=== PATIENT | male | born 1940 | race Caucasian/White ===

== ENCOUNTER → 2016-12-06 | Outpatient (CLI) | payer MEDICARE, BC ==
[2016-12-06 12:27] LABS: ALANINE AMINOTRANSFERASE 30 U/L (21-72); ALKALINE PHOSPHATASE 82 U/L (38-126); ANION GAP 9 (5-19); ASPARTATE AMINO TRANSFERASE 19 U/L (17-59); BILIRUBIN,DIRECT 0.2 mg/dL (0.0-0.4); BILIRUBIN,TOTAL 0.5 mg/dL (0.2-1.3); BLOOD UREA NITROGEN 24 mg/dL (7-20); CALCIUM 9.7 mg/dL (8.4-10.2); CARBON DIOXIDE 30 mmol/L (22-30); CHLORIDE 100 mmol/L (98-107); CHOLESTEROL 133.54 mg/dL (0-200); CREATININE RESULT 0.99 mg/dL (0.52-1.25); Direct HDL 47 mg/dL (>40); GLUCOSE 235 mg/dL (75-110); POTASSIUM 4.8 mmol/L (3.6-5.0); SODIUM 139.3 mmol/L (137-145); TOTAL PROTEIN 6.9 g/dL (6.3-8.2); TRIGLYCERIDES 141 mg/dL (<150)
[2016-12-06 12:39] LABS: DIRECT LDL 55 mg/dL (<100)
== END ==
LOC: LAB 11:50
PROVIDERS: ATTEND Internal Medicine
DX: I25.118 Atherosclerotic heart disease of native coronary artery with other forms of angina pectoris (principal); Z98.61 Coronary angioplasty status; E11.9 Type 2 diabetes mellitus without complications; E78.4 Other hyperlipidemia; I10 Essential (primary) hypertension; I73.9 Peripheral vascular disease, unspecified; N40.0 Benign prostatic hyperplasia without lower urinary tract symptoms; Z79.899 Other long term (current) drug therapy; I34.0 Nonrheumatic mitral (valve) insufficiency
CPT/HCPCS: 36415; 80053; 80061; 83036

== ENCOUNTER → 2017-06-08 | Outpatient (CLI) | payer MEDICARE, BC ==
[2017-06-08 11:18] LABS: ALANINE AMINOTRANSFERASE 41 U/L (21-72); ALBUMIN 4.5 g/dL (3.5-5.0); ALKALINE PHOSPHATASE 72 U/L (38-126); ANION GAP 11 (5-19); ASPARTATE AMINO TRANSFERASE 24 U/L (17-59); BILIRUBIN,DIRECT 0.4 mg/dL (0.0-0.4); BILIRUBIN,TOTAL 0.7 mg/dL (0.2-1.3); BLOOD UREA NITROGEN 24 mg/dL (7-20); CALCIUM 9.8 mg/dL (8.4-10.2); CARBON DIOXIDE 30 mmol/L (22-30); CHLORIDE 102 mmol/L (98-107); CHOLESTEROL 148.52 mg/dL (0-200); Direct HDL 59 mg/dL (>40); GLUCOSE 143 mg/dL (75-110); POTASSIUM 4.9 mmol/L (3.6-5.0); SODIUM 143.3 mmol/L (137-145); TOTAL PROTEIN 7.4 g/dL (6.3-8.2); TRIGLYCERIDES 84 mg/dL (<150)
[2017-06-08 11:29] LABS: DIRECT LDL 72 mg/dL (<100)
== END ==
LOC: LAB 10:42
PROVIDERS: ATTEND Internal Medicine
DX: I25.118 Atherosclerotic heart disease of native coronary artery with other forms of angina pectoris (principal); Z98.61 Coronary angioplasty status; E78.4 Other hyperlipidemia; I10 Essential (primary) hypertension; E11.9 Type 2 diabetes mellitus without complications; I34.0 Nonrheumatic mitral (valve) insufficiency; I73.9 Peripheral vascular disease, unspecified; N40.0 Benign prostatic hyperplasia without lower urinary tract symptoms; Z79.899 Other long term (current) drug therapy
CPT/HCPCS: 36415; 80053; 80061; 83036

== ENCOUNTER → 2018-01-24 | Outpatient (CLI) | payer MEDICARE, BC ==
[2018-01-24 10:52] LABS: ALANINE AMINOTRANSFERASE 27 U/L (21-72); ALBUMIN 4.3 g/dL (3.5-5.0); ALKALINE PHOSPHATASE 75 U/L (38-126); ANION GAP 11 (5-19); ASPARTATE AMINO TRANSFERASE 23 U/L (17-59); BILIRUBIN,DIRECT 0.2 mg/dL (0.0-0.4); BILIRUBIN,TOTAL 0.6 mg/dL (0.2-1.3); BLOOD UREA NITROGEN 18 mg/dL (7-20); CALCIUM 9.4 mg/dL (8.4-10.2); CARBON DIOXIDE 27 mmol/L (22-30); CHLORIDE 104 mmol/L (98-107); CHOLESTEROL 142.36 mg/dL (0-200); GLUCOSE 131 mg/dL (75-110); POTASSIUM 4.5 mmol/L (3.6-5.0); SODIUM 142.2 mmol/L (137-145); TOTAL PROTEIN 7.3 g/dL (6.3-8.2); TRIGLYCERIDES 87 mg/dL (<150)
[2018-01-24 11:03] LABS: DIRECT LDL 67 mg/dL (<100)
== END ==
LOC: LAB 10:01
PROVIDERS: ATTEND Internal Medicine
DX: I25.118 Atherosclerotic heart disease of native coronary artery with other forms of angina pectoris (principal); Z98.61 Coronary angioplasty status; E78.4 Other hyperlipidemia; I10 Essential (primary) hypertension; I73.9 Peripheral vascular disease, unspecified; N40.0 Benign prostatic hyperplasia without lower urinary tract symptoms; E11.9 Type 2 diabetes mellitus without complications; I34.0 Nonrheumatic mitral (valve) insufficiency; Z79.899 Other long term (current) drug therapy
CPT/HCPCS: 36415; 80053; 80061

== ENCOUNTER → 2018-07-10 | Outpatient (CLI) | payer MEDICARE, BC ==
[2018-07-10 16:22] LABS: ALANINE AMINOTRANSFERASE 19 U/L (21-72); ALBUMIN 4.4 g/dL (3.5-5.0); ALKALINE PHOSPHATASE 79 U/L (38-126); ANION GAP 10 (5-19); ASPARTATE AMINO TRANSFERASE 21 U/L (17-59); BILIRUBIN,DIRECT 0.2 mg/dL (0.0-0.4); BILIRUBIN,TOTAL 0.6 mg/dL (0.2-1.3); BLOOD UREA NITROGEN 18 mg/dL (7-20); CALCIUM 9.7 mg/dL (8.4-10.2); CARBON DIOXIDE 28 mmol/L (22-30); CHLORIDE 102 mmol/L (98-107); CHOLESTEROL 133.32 mg/dL (0-200); GLUCOSE 155 mg/dL (75-110); POTASSIUM 4.6 mmol/L (3.6-5.0); SODIUM 139.5 mmol/L (137-145); TOTAL PROTEIN 6.8 g/dL (6.3-8.2); TRIGLYCERIDES 102 mg/dL (<150)
[2018-07-10 16:39] LABS: DIRECT LDL 66 mg/dL (<100)
== END ==
LOC: LAB 14:56
PROVIDERS: ATTEND Internal Medicine
DX: I25.118 Atherosclerotic heart disease of native coronary artery with other forms of angina pectoris (principal); Z98.61 Coronary angioplasty status; I10 Essential (primary) hypertension; I73.9 Peripheral vascular disease, unspecified; N40.0 Benign prostatic hyperplasia without lower urinary tract symptoms; E11.9 Type 2 diabetes mellitus without complications; I34.0 Nonrheumatic mitral (valve) insufficiency; Z79.899 Other long term (current) drug therapy
CPT/HCPCS: 36415; 80053; 80061; 83036

== ENCOUNTER → 2018-11-20 | Outpatient (CLI) | payer MEDICARE, BC ==
[2018-11-20 13:03] LABS: ALANINE AMINOTRANSFERASE 23 U/L (21-72); ALKALINE PHOSPHATASE 73 U/L (38-126); ASPARTATE AMINO TRANSFERASE 18 U/L (17-59); BILIRUBIN,DIRECT 0.4 mg/dL (0.0-0.4); BILIRUBIN,TOTAL 0.7 mg/dL (0.2-1.3); CHOLESTEROL 130.98 mg/dL (0-200); TOTAL PROTEIN 6.4 g/dL (6.3-8.2); TRIGLYCERIDES 70 mg/dL (<150)
[2018-11-20 13:20] LABS: DIRECT LDL 71 mg/dL (<100)
== END ==
LOC: LAB 11:51
PROVIDERS: ATTEND Specialist
DX: I25.10 Atherosclerotic heart disease of native coronary artery without angina pectoris (principal); Z98.61 Coronary angioplasty status; E78.49 Other hyperlipidemia; I10 Essential (primary) hypertension; I73.9 Peripheral vascular disease, unspecified; N40.0 Benign prostatic hyperplasia without lower urinary tract symptoms; I34.0 Nonrheumatic mitral (valve) insufficiency; Z79.899 Other long term (current) drug therapy
CPT/HCPCS: 36415; 80061; 80076; 83036

== ENCOUNTER 2019-05-18 12:14 | Emergency (ER) | payer MEDICARE, BC ==
--- NOTE | 2019-05-18 12:37 | ER Document Report ---
ED Medical Screen (RME) - General Chief Complaint: Abdominal Pain Stated Complaint: ABDOMINAL PAIN Time Seen by Provider: 05/18/19 12:24 Primary Care Provider: DUNIA OWEN MD [Primary Care Provider] - Follow up as needed Notes: 78-year-old male with coronary artery disease status post stent x2, remote history of double hernia repair status post mesh placement, and diabetes presents the emergency department with abdominal pain for the past month got acutely worse last couple of days. Patient states is been to 3 different doctors who "have not helped me". Denies fevers or chills, denies nausea or vomiting Exam: Well-appearing and nontoxic. Lungs are clear in all kang, abdominal exam limited by patient does have diffuse tenderness palpation while sitting down I have greeted and performed a rapid initial assessment of this patient. A comprehensive ED assessment and evaluation of the patient, analysis of test results and completion of medical decision making process will be conducted by an additional ED providers. TRAVEL OUTSIDE OF THE [place] IN LAST 30 DAYS: No - Related Data Allergies/Adverse Reactions: No Known Allergies Allergy (Unverified 05/18/19 12:23) Physical Exam - Vital signs Vitals: Temp Pulse Resp BP 97.6 F 123 H 16 152/65 H 05/18/19 12:15 05/18/19 12:15 05/18/19 12:15 05/18/19 12:15 Course - Vital Signs Vital signs: Temp Pulse Resp BP Pulse Ox 97.6 F 123 H 16 152/65 H 05/18/19 12:15 05/18/19 12:15 05/18/19 12:15 05/18/19 12:15 Doctor's Discharge - Discharge Referrals: DUNIA OWEN MD [Primary Care Provider] - Follow up as needed
[2019-05-18 13:19] LABS: APPEARANCE,URINE SLIGHTLY-CLOUDY; BILIRUBIN,URINE NEGATIVE (NEGATIVE); COLOR,URINE YELLOW; GLUCOSE, URINE >=500 mg/dL (NEGATIVE); KETONES,URINE NEGATIVE (NEGATIVE); LEUKOCYTE ESTERASE,URINE TRACE (NEGATIVE); NITRITE,URINE NEGATIVE (NEGATIVE); PROTEIN,URINE NEGATIVE (NEGATIVE); URINE SPECIFIC GRAVITY 1.013; UROBILINOGEN,URINE NEGATIVE mg/dL (<2.0)
[2019-05-18 14:25] LABS: ABSOLUTE EOSINOPHILS # (AUTO) 0.1 10^3/uL (0.0-0.6); ABSOLUTE LYMPHOCYTES (AUTO) 0.9 10^3/uL (0.5-4.7); ABSOLUTE MONOCYTES (AUTO) 1.1 10^3/uL (0.1-1.4); ABSOLUTE NEUT (AUTO) 9.3 10^3/uL (1.7-8.2); BASOPHILS % (AUTO) 0.4 % (0-2); EOSINOPHILS % (AUTO) 0.7 % (0-6); HEMATOCRIT 41.9 % (37.9-51.0); LYMPHOCYTES % (AUTO) 7.8 % (13-45); MEAN CORPUSCULAR HEMOGLOBIN 30.1 pg (27.0-33.4); MEAN CORPUSCULAR HGB CONC 33.4 g/dL (32.0-36.0); MEAN CORPUSCULAR VOLUME 90 fl (80-97); MONOCYTES % (AUTO) 9.3 % (3-13); PLATELET COUNT 209 10^3/uL (150-450); RED BLOOD COUNT 4.64 10^6/uL (4.35-5.55); RED CELL DISTRIBUTION WIDTH 14.2 % (11.5-14.0); SEGMENTED NEUTROPHILS % (AUTO) 81.8 % (42-78); TOTAL CELLS COUNTED % (AUTO) 100 %; WHITE BLOOD COUNT 11.4 10^3/uL (4.0-10.5)
[2019-05-18 14:41] LABS: ALBUMIN 4.1 g/dL (3.5-5.0); ALKALINE PHOSPHATASE 89 U/L (38-126); ANION GAP 12 (5-19); ASPARTATE AMINO TRANSFERASE 30 U/L (17-59); BILIRUBIN,DIRECT 0.3 mg/dL (0.0-0.4); BILIRUBIN,TOTAL 0.7 mg/dL (0.2-1.3); BLOOD UREA NITROGEN 57 mg/dL (7-20); CALCIUM 9.8 mg/dL (8.4-10.2); CARBON DIOXIDE 25 mmol/L (22-30); CHLORIDE 106 mmol/L (98-107); GLUCOSE 185 mg/dL (75-110); POTASSIUM 5.5 mmol/L (3.6-5.0); TOTAL PROTEIN 8.1 g/dL (6.3-8.2)
[2019-05-18] MEDS ORDERED: MORPHINE SULFATE 10 MG/ML INJ IV ONE ×2 (15:34→18:13)
[2019-05-18] MEDS ORDERED: NORMAL SALINE 1000 ML 1,000 ML IV ONE (15:34)
--- NOTE | 2019-05-18 15:43 | ER Document Report ---
ED GI/ - General Chief Complaint: Urinary Problem Stated Complaint: ABDOMINAL PAIN Time Seen by Provider: 05/18/19 12:24 Primary Care Provider: ADRIANA BUENROSTRO MD [NO LOCAL MD] - Follow up as needed Mode of Arrival: Ambulatory Information source: Patient Notes: 78-year-old male with coronary artery disease status post stent x2, remote history of double hernia repair status post mesh placement, and diabetes presents the emergency department with abdominal pain for the past month got acutely worse last couple of days. Patient states is been to 3 different docto rs who "have not helped me". Denies fevers or chills, denies nausea or vomiting He states that his PCP has started him on flomax, doxycycline and cipro without relief of his pain. States his PCP did not look at his recatl area of assess his scrotum. States he had a "normal" urine test at the PCP. Denies hx of BPH. TRAVEL OUTSIDE OF THE [place] IN LAST 30 DAYS: No - Related Data Allergies/Adverse Reactions: No Known Allergies Allergy (Unverified 05/18/19 12:23) Past Medical History - General Information source: Patient - Social History Smoking Status: Former Smoker Chew tobacco use (# tins/day): Yes Frequency of alcohol use: Occasional Drug Abuse: None Family History: Reviewed & Not Pertinent Patient has suicidal ideation: No Patient has homicidal ideation: No Endocrine Medical History: Reports: Hx Diabetes Mellitus Type 2 Past Surgical History: Reports: Hx Abdominal Surgery - Immunizations Immunizations up to date: Yes Review of Systems - Review of Systems Constitutional: No symptoms reported EENT: No symptoms reported Cardiovascular: No symptoms reported Respiratory: No symptoms reported Gastrointestinal: Abdominal pain Genitourinary: Incontinence, Urgency, Retention Male Genitourinary: No symptoms reported Musculoskeletal: No symptoms reported Skin: No symptoms reported Hematologic/Lymphatic: No symptoms reported Neurological/Psychological: No symptoms reported Physical Exam - Vital signs Vitals: Temp Pulse Resp BP 97.6 F 123 H 16 152/65 H 05/18/19 12:15 05/18/19 12:15 05/18/19 12:15 05/18/19 12:15 - Notes Notes: PHYSICAL EXAMINATION: GENERAL: Appears to be stated age, no acute distress, well groomed. HEAD: Atraumatic, normocephalic. EYES: Pupils equal round and reactive to light, extraocular movements intact, sclera anicteric, conjunctiva are normal. ENT: Nares patent, oropharynx clear without exudates. Moist mucous membranes. NECK: Normal range of motion, supple without lymphadenopathy LUNGS: Breath sounds clear to auscultation bilaterally and equal. No wheezes rales or rhonchi. HEART: Regular rate and rhythm without murmurs ABDOMEN: Soft, mildy distended abdomen. No guarding, no rebound. No masses appreciated. Genitourinary: Enlarged prostate on rectal exam, large external hemorroids noted. Musculoskeletal: Normal range of motion, no pitting or edema. No cyanosis. NEUROLOGICAL: Cranial nerves grossly intact. Normal speech, normal gait. Normal sensory, motor exams PSYCH: Normal mood, normal affect. SKIN: Warm, Dry, normal turgor, no rashes or lesions noted. Course - Re-evaluation Re-evalutation: 05/18/19 15:42 Discussed case with both attending physician, Dr. Valero as well as radiologist, Dr. Mosley. Patient does need a CT however we will have to proceed with CT with oral contrast only due to new onset renal failure. Laboratory 05/18/19 05/18/19 05/18/19 13:00 14:07 14:07 WBC 11.4 H RBC 4.64 Hgb 14.0 Hct 41.9 MCV 90 MCH 30.1 MCHC 33.4 RDW 14.2 H Plt Count 209 Lymph % (Auto) 7.8 L Norman % (Auto) 9.3 Eos % (Auto) 0.7 Baso % (Auto) 0.4 Absolute Neuts (auto) 9.3 H Absolute Lymphs (auto) 0.9 Absolute Monos (auto) 1.1 Absolute Eos (auto) 0.1 Absolute Basos (auto) 0.0 Seg Neutrophils % 81.8 H Sodium 142.9 Potassium 5.5 H Chloride 106 Carbon Dioxide 25 Anion Gap 12 BUN 57 H Creatinine 2.26 H Est GFR ( Amer) 34 L Est GFR (MDRD) Non-Af 28 L Glucose 185 H Calcium 9.8 Total Bilirubin 0.7 Direct Bilirubin 0.3 Neonat Total Bilirubin Not Reportable Neonat Direct Bilirubin Not Reportable Neonat Indirect Bili Not Reportable AST 30 ALT 34 Alkaline Phosphatase 89 Total Protein 8.1 Albumin 4.1 Lipase 12.4 L Urine Color YELLOW Urine Appearance SLIGHTLY-CLOUDY Urine pH 5.0 Ur Specific [place] 1.013 Urine Protein NEGATIVE Urine Glucose (UA) >=500 H Urine Ketones NEGATIVE Urine Blood LARGE H Urine Nitrite NEGATIVE Urine Bilirubin NEGATIVE Urine Urobilinogen NEGATIVE Ur Leukocyte Esterase TRACE H Urine WBC (Auto) 38 Urine RBC (Auto) 152 Squamous Epi Cells Auto <1 Urine Mucus (Auto) RARE Urine Ascorbic Acid NEGATIVE CT of the abdomen and pelvis shows acute urinary retention. Thayer catheter inserted, 2000 mL's of clear yellow urine obtained. Patient reports he feels much improved. Called and spoke with on-call urologist at [facility], he agr ees to see patient in clinic, see d/c notes for further details on this. - Vital Signs Vital signs: Temp Pulse Resp BP Pulse Ox 97.5 F 72 14 155/64 H 97 05/18/19 21:50 05/18/19 21:50 05/18/19 21:50 05/18/19 21:50 05/18/19 21:50 - Laboratory Result Diagrams: 05/18/19 14:07 05/18/19 14:07 Laboratory results interpreted by me: 05/18/19 05/18/19 05/18/19 13:00 14:07 14:07 WBC 11.4 H RDW 14.2 H Lymph % (Auto) 7.8 L Absolute Neuts (auto) 9.3 H Seg Neutrophils % 81.8 H Potassium 5.5 H BUN 57 H Creatinine 2.26 H Est GFR ( Amer) 34 L Est GFR (MDRD) Non-Af 28 L Glucose 185 H Lipase 12.4 L Urine Glucose (UA) >=500 H Urine Blood LARGE H Ur Leukocyte Esterase TRACE H Discharge - Discharge Clinical Impression: Acute urinary retention, Acute hemorrhoid Condition: Stable Disposition: HOME, SELF-CARE Additional Instructions: Your exam today showed elevated creatinine levels and acute urinary retention secondary to an enlarged prostate. The urinary retention is likely what caused the elevated creatinine levels and for your kidney function to be altered. It is very important for you to follow-up with urology. I have called and spoke with Dr. Buenrostro at [facility] urology, he would like you to call his office Monday so that they can work you into their schedule. Please let them know you were seen in the emergency department and the emergency department provider spoke with Dr. Buenrostro. Keep the Thayer catheter in place until seen by urology. Prescriptions: Hydrocodone Bit/Acetaminophen [Hydrocodon-Acetaminophen 5-325] 1 each PO Q4H PRN #15 tablet PRN Reason: Referrals: ADRIANA BUENROSTRO MD [NO LOCAL MD] - Follow up as needed
--- NOTE | 2019-05-18 16:50 | RADIOLOGY REPORT (SQ) ---
EXAM DESCRIPTION: CT ABD/PELVIS ORAL ONLY COMPLETED DATE/TIME: 05/18/2019 4:20 pm REASON FOR STUDY: Abdominal pain COMPARISON: None. TECHNIQUE: CT scan of the abdomen and pelvis performed with oral contrast and no intravenous contras t. Images reviewed with lung, soft tissue, and bone windows. Reconstructed coronal and sagittal MPR i mages reviewed. All images stored on PACS. All CT scanners at this facility use dose modulation, iterative reconstruction, and/or weight based d osing when appropriate to reduce radiation dose to as low as reasonably achievable (ALARA). [facility]: Dose Right [facility]: CareDose [facility]: Dose Right [facility]: Teradose 4D [facility]: [employer] RADIATION DOSE: CT Rad equipment meets quality standard of care and radiation dose reduction techniq ues were employed. CTDIvol: 4.9 mGy. DLP: 244 mGy-cm.mGy. LIMITATIONS: None. FINDINGS: LOWER CHEST: There is a 2.1 x 1.7 cm nodular density within the right lung base and a 1.1 x 1.8 cm nodular density within the left lung base. NON-CONTRASTED LIVER, SPLEEN, ADRENALS: Evaluation limited by lack of IV contrast. No identified sign ificant masses. Incidental note is made of punctate calcifications within the spleen. PANCREAS: Largely fatty replaced. No masses or inflammatory changes. GALLBLADDER: Cholelithiasis without evidence of cholecystitis. RIGHT KIDNEY AND URETER: Moderate hydronephrosis. No evidence of mass or significant calcifications. Right ureterectasis which is associated with a cystic outpouching of the bladder which may represen t the right ureterocele versus bladder diverticulum. LEFT KIDNEY AND URETER: Moderate hydronephrosis and ureterectasis without obstructing lesion identifi ed. AORTA AND RETROPERITONEUM: Infrarenal aortic aneurysm. Diffuse calcified atherosclerotic plaque. BOWEL AND PERITONEAL CAVITY: Diverticulosis without focal inflammatory changes. APPENDIX: Not visualized. PELVIS, BLADDER, AND ABDOMINAL WALL: Marked dilatation of the bladder with a right posterolateral timoteo dder diverticulum versus right ureterocele. BONES: Degenerative changes are seen of the hips and spine. No suspicious lytic or blastic osseous l esions. No acute findings. OTHER: No other significant finding. IMPRESSION: Marked dilation of the urinary bladder with a right posterolateral outpouching which may be on the basis of a bladder diverticulum versus a right ureterocele. Bilateral hydronephrosis and ureterectasis likely secondary to this finding. Other chronic and incidental findings as detailed ab ove. TECHNICAL DOCUMENTATION: JOB ID: [id number] Quality ID # [id number]: Final reports with documentation of one or more dose reduction techniques (e.g., Au tomated exposure control, adjustment of the mA and/or kV according to patient size, use of iterative reconstruction technique) 2010 [employer]- All Rights Reserved Reading location - IP/workstation name: [email or web address]
[2019-05-18] MEDS ORDERED: LIDOCAINE 2% URO-JET 5 ML KIT MM ONE ×2 (17:14→18:14)
[2019-05-18] MEDS ORDERED: ONDANSETRON HCL INJ/PF 4 MG/2 ML SDV IV ONE (18:42)
[2019-05-18] MEDS ORDERED: HYDROCODONE/ACETAMINOPHEN 5-325 MG (6 TAB/ER DISP) PO PRN (21:25)
[2019-05-18 21:51] VITALS: BP 155/64
--- NOTE | 2019-05-19 01:15 | EKG REPORT ---
SEVERITY:- BORDERLINE ECG - SINUS TACHYCARDIA BORDERLINE ST ELEVATION, INFERIOR LEADS : Confirmed by: Jamaica Adame MD 19-May-2019 01:13:35
== END 2019-05-18 21:53 | disposition home or self-care (01) ==
LOC: ER 12:14
DX: R33.9 Retention of urine, unspecified (principal); K64.8 Other hemorrhoids; R32 Unspecified urinary incontinence; R39.15 Urgency of urination; R39.198 Other difficulties with micturition; R10.9 Unspecified abdominal pain; I25.10 Atherosclerotic heart disease of native coronary artery without angina pectoris; E11.9 Type 2 diabetes mellitus without complications; Z98.890 Other specified postprocedural states; Z87.891 Personal history of nicotine dependence
CPT/HCPCS: 93005; 36415; 83690; 85025; 80053; 81001; 74176; 93010; C1758 ×2; J2270; J2405; J7030; A9270 ×2; 51702; 96361; 96374; 96375; 96376; 99284; J3490

== ENCOUNTER → 2019-07-10 | Outpatient (CLI) | payer MEDICARE, BC ==
[~2019-07-10] MED LIST: REGADENOSON INJ 0.4 MG/5 ML DISP.SYRIN IV ONE
--- NOTE | 2019-07-10 22:31 | DRAGON STRESS TEST REPORT ---
Intravenous Lexiscan Cardiolite stress test using single photon emmision computerized tomography. Date of procedure: 07/10/2019. Ordering Provider: Dr. Jamaica Adame.Patient's status: Outpatient. Indication: Coronary artery disease, and preoperative cardiac risk assessment.. Coronary risk factors: Age, hypertension, and dyslipidemia. Resting EKG: Sinus Rhythm. Poor R wave progression leads V1 to V6. Stress EKG: No changes of ischemia. The patient had no chest pain or discomfort, and there were no arrhythmias seen. Reason for termination: Protocol. Conclusions: Normal EKG and hemodynamic response to IV Lexiscan. Nuclear data: At rest the patient was given 10.27 millicuries of technetium 99m sestamibi injected intravenously. As per protocol rest non gated SPECT images were obtained. Subsequently the patient was given intravenous Lexiscan at a dose of 0.4 mg in 5 mL intravenously, followed by flush with normal saline. Subsequently the stress dose of 31.9 millicuries of technetium 99m sestamibi was injected intravenously. As per protocol stress gated images were obtained. Nuclear interpretation: Review of images showed that all segments of the myocardium had normal perfusion in the Lexiscan induced stress images. There is soft tissue attenuation artifact of the left ventricular apex and the basal inferior wall involving the rest images. These areas had normal motion contraction and thickening by gated gated study. There was no reversible ischemia. There was no NV or scar. All segments of the myocardium had normal motion, contraction, and thickening by gated study. T. I D. ratio was normal at 0.92. There is no transient ischemic dilatation of the left ventricle. Computer read rest, and stress left ventricular ejection fraction were 72 %, and 69 %, respectively. Conclusion: 1. There is no scintigraphic evidence of Lexiscan induced myocardial ischemia. 2. There is no scintigraphic evidence of myocardial infarction/scar. Recommendations: Aggressive risk factor modification, and treating the underlying co- morbidities. MTDD
== END ==
LOC: RAD 08:21
PROVIDERS: ATTEND Specialist
DX: I25.10 Atherosclerotic heart disease of native coronary artery without angina pectoris (principal); I10 Essential (primary) hypertension; E78.5 Hyperlipidemia, unspecified
CPT/HCPCS: 93017; 78452; A9500; J2785; Q9969

== ENCOUNTER → 2019-11-14 | Outpatient (CLI) | payer MEDICARE, BC ==
--- NOTE | 2019-11-14 14:44 | RADIOLOGY REPORT (SQ) ---
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 Images reviewed with lung, soft tissue and bone windows. Reconstructed coronal and sagittal MPR images reviewed. All images st ored on PACS. All CT scanners at this facility use dose modulation, iterative reconstruction, and/or weight based d osing when appropriate to reduce radiation dose to as low as reasonably achievable (ALARA). [facility]: Dose Right [facility]: CareDose [facility]: Dose Right [facility]: Teradose 4D [facility]: [employer] RADIATION DOSE: CT Rad equipment meets quality standard of care and radiation dose reduction techniq ues were employed. CTDIvol: 7.8 mGy. DLP: 358 mGy-cm. mGy. LIMITATIONS: No technical limitations. FINDINGS: LUNGS AND PLEURA: Lungs are hyperinflated from obstructive disease. Calcified granuloma l eft lower lobe. Nodules described on CT abdomen pelvis at both lung bases 05/18/2019 have resolved. No pleural effusions. No pneumothorax. HILAR AND MEDIASTINAL STRUCTURES: No identified masses or abnormal nodes. No obvious aneurysm. HEART AND VASCULAR STRUCTURES: No aneurysm. No pericardial effusion. UPPER ABDOMEN: Multiple liver masses are present worrisome for metastatic disease, largest is in the posterior right lobe liver 6 cm in diameter axial image 60. Next largest is 5 cm diameter inferior r ight lobe liver axial image 79. Calcified stones in the gallbladder. THYROID AND OTHER SOFT TISSUES: Thyroid unremarkable. Left gynecomastia BONES: No significant finding. HARDWARE: None in the chest. OTHER: No other significant findings. IMPRESSION: Multiple hypodense masses in the liver worrisome for metastatic disease. No masses or adenopathy in the chest TECHNICAL DOCUMENTATION: JOB ID: [id number] Quality ID # [id number]: Final reports with documentation of one or more dose reduction techniques (e.g., Au tomated exposure control, adjustment of the mA and/or kV according to patient size, use of iterative reconstruction technique) 2010 [employer]- All Rights Reserved Reading location - IP/workstation name: [email or web address]
== END ==
LOC: RAD 13:40
PROVIDERS: ATTEND Family Medicine
DX: C78.7 Secondary malignant neoplasm of liver and intrahepatic bile duct (principal)
CPT/HCPCS: 71250